=== PATIENT | male | born 1995 | race Caucasian/White ===

== ENCOUNTER 2020-07-28 13:53 | Emergency (ER) | payer OTHER ==
[2020-07-28 14:13] VITALS: BP 120/74; PULSE 101; TEMP 99.3; BMI 34.2
[2020-07-28 16:01] LABS: BASO % 0.4 % (0-2.0); EOS % 0.1 % (0-4.5); HEMOGLOBIN 16.6 GM/dL (11.7-16.9); LYMPH % 21.6 % (8-40); MCH 30.3 pg (25.7-33.7); MEAN CELL VOLUME 89.2 fl (80-96); MEAN PLT VOLUME 10.8 fl (7.5-11.1); MONO % 10.4 % (3.8-10.2); NEUT % 67.5 % (42.8-82.8); PLATELET COUNT 118 K/MM3 (134-434); RBC 5.49 M/mm3 (4.00-5.60)
[2020-07-28] MEDS ORDERED: KETOROLAC TROMETHAMINE 30 MG/1 ML VIAL IVPUSH ONE (16:07)
[2020-07-28] MEDS ORDERED: KETOROLAC TROMETHAMINE 30 MG/1 ML VIAL ONE (16:18)
[2020-07-28 16:25] LABS: INR 1.2 (0.83-1.09); PROTHROMBIN TIME (PATIENT) 14.7 SEC (9.7-13.0)
[2020-07-28 16:28] LABS: ACTIVATED PTT 32.6 SECONDS (25.2-36.5)
[2020-07-28 16:45] LABS: CHLORIDE 105 mmol/L (98-107); POTASSIUM 4.5 mmol/L (3.5-5.1); SODIUM 138 mmol/L (136-145)
[2020-07-28 16:48] LABS: ANION GAP 9 MMOL/L (8-16); BLOOD UREA NITROGEN 16.4 mg/dL (7-18); CALCIUM 8.5 mg/dL (8.5-10.1); CO2 24 mmol/L (21-32); GLUCOSE,RANDOM 103 mg/dL (74-106)
[2020-07-28 16:51] LABS: SGOT/AST 24 U/L (15-37); SGPT/ALT 34 U/L (13-61)
[2020-07-28 16:52] LABS: CREATININE 0.9 mg/dL (0.55-1.3)
[2020-07-28 16:53] LABS: BILIRUBIN,TOTAL 0.5 mg/dL (0.2-1); TOT PROT 7.4 g/dl (6.4-8.2)
[2020-07-28 16:54] LABS: ALK PHOS 62 U/L (45-117)
[2020-07-28 17:15] LABS: PLATELET ESTIMATE DECREASED
== END 2020-07-28 17:31 | disposition home or self-care (01) ==
LOC: JER 13:53
PROC: 3E033GC Introduction of Other Therapeutic Substance into Peripheral Vein, Percutaneous Approach (ICD-10-PCS; principal; 2020-07-28)
DX: R07.9 Chest pain, unspecified (principal); R06.02 Shortness of breath; R50.9 Fever, unspecified; Z11.52 Encounter for screening for COVID-19
CPT/HCPCS: 36415; 71045-TC-FY; 80053; 82550; 84484; 85025; 85379; 85610; 85730; 93005; 93010; 99285-25; C9803; U0003

== ENCOUNTER 2021-03-08 12:36 | Emergency (ER) | payer OTHER ==
[2021-03-08 12:50] VITALS: BP 147/81; PULSE 63; TEMP 98; BMI 26.4
[2021-03-08] MEDS ORDERED: DICYCLOMINE HCL 20 MG TABLET PO ONE (13:23)
[2021-03-08] MEDS ORDERED: METOCLOPRAMIDE HCL INJECTION 10 MG/2 ML VIAL IVPB ONE (13:23)
[2021-03-08] MEDS ORDERED: SODIUM CHLORIDE 1,000 ML IV STA (13:23)
[2021-03-08] MEDS ORDERED: FAMOTIDINE 20 MG/50 ML IVPB 20 MG/50 ML MG IVPB ONE ×2 (13:23→13:47)
[2021-03-08] MEDS ORDERED: MAG HYDROX/AL HYDROX/SIMETH 30 ML UNIT-DOSE CUP PO ONE (13:25)
[2021-03-08] MEDS ORDERED: METOCLOPRAMIDE HCL INJECTION 10 MG/2 ML VIAL ONE (13:46)
[2021-03-08] MEDS ORDERED: DICYCLOMINE HCL 10 MG CAPSULE ONE (13:46)
[2021-03-08] MEDS ORDERED: MAG HYDROX/AL HYDROX/SIMETH 30 ML UNIT-DOSE CUP ONE (13:47)
[2021-03-08] MEDS ORDERED: ACETAMINOPHEN 1000 MG/100 ML VIAL (NON FORMULARY) IVPB ONE (13:56)
[2021-03-08 13:59] LABS: BASO % 0.7 % (0-2.0); HEMATOCRIT 46.9 % (35.4-49); HEMOGLOBIN 15.9 GM/dL (11.7-16.9); LYMPH % 29.5 % (8-40); MCH 29.8 pg (25.7-33.7); MCHC 33.9 g/dl (32.0-35.9); MEAN CELL VOLUME 88.1 fl (80-96); MEAN PLT VOLUME 9.9 fl (7.5-11.1); MONO % 6.9 % (3.8-10.2); NEUT % 61.9 % (42.8-82.8); PLATELET COUNT 200 10^3/uL (134-434); RBC 5.33 M/mm3 (4.00-5.60); WHITE BLOOD COUNT 5.6 K/mm3 (4.0-10.0)
[2021-03-08 14:20] LABS: ALBUMIN 4.3 g/dl (3.4-5.0); BLOOD UREA NITROGEN 12.5 mg/dL (7-18); CALCIUM 8.9 mg/dL (8.5-10.1)
[2021-03-08 14:23] LABS: CREATININE 0.8 mg/dL (0.55-1.3)
[2021-03-08 14:25] LABS: BILIRUBIN,TOTAL 0.7 mg/dL (0.2-1); TOT PROT 7.9 g/dl (6.4-8.2)
[2021-03-08] MEDS ORDERED: ACETAMINOPHEN INJECTION 100 ML IVPB ONE (14:54)
[2021-03-08] MEDS ORDERED: POLYETHYLENE GLYCOL 3350 119 GM BTL PO ONE (17:36)
== END 2021-03-08 18:10 | disposition home or self-care (01) ==
LOC: JER 12:36
PROC: 3E0333Z Introduction of Anti-inflammatory into Peripheral Vein, Percutaneous Approach (ICD-10-PCS; principal; 2021-03-08)
PROC: 3E033GC Introduction of Other Therapeutic Substance into Peripheral Vein, Percutaneous Approach (ICD-10-PCS; 2021-03-08)
PROC: 3E033GC Introduction of Other Therapeutic Substance into Peripheral Vein, Percutaneous Approach (ICD-10-PCS; 2021-03-08)
PROC: 3E0337Z Introduction of Electrolytic and Water Balance Substance into Peripheral Vein, Percutaneous Approach (ICD-10-PCS; 2021-03-08)
DX: K59.00 Constipation, unspecified (principal); R10.13 Epigastric pain
CPT/HCPCS: 36415; 74019-TC-FY; 76705-TC; 80053; 83690; 85025; 86850; 86900; 86901; 99285-25; J0131

== ENCOUNTER 2024-04-11 16:48 | Emergency (ER) | payer OTHER ==
[2024-04-11 17:02] VITALS: BP 136/79; PULSE 74; RESP 20; TEMP 97.6; BMI 27.0
[2024-04-11] MEDS ORDERED: DIPHTH,PERTUSS(ACELL),TET 0.5 ML DISP.SYRIN IM ONE (18:07)
[2024-04-11] MEDS: DIPHTH,PERTUSS(ACELL),TET 0.5 ML DISP.SYRIN IM ONE (18:11)
== END 2024-04-11 18:57 | disposition home or self-care (01) ==
LOC: JERFT 16:48
PROC: 0XQPXZZ Repair Left Index Finger, External Approach (ICD-10-PCS; principal; 2024-04-11)
PROC: 3E0234Z Introduction of Serum, Toxoid and Vaccine into Muscle, Percutaneous Approach (ICD-10-PCS; 2024-04-11)
DX: S61.211A Laceration without foreign body of left index finger without damage to nail, initial encounter (principal); W26.8XXA Contact with other sharp object(s), not elsewhere classified, initial encounter; Z23 Encounter for immunization
CPT/HCPCS: 12001-25; 90471; 90715; 99284-25